=== PATIENT | male | born 1980 | race Two or more races ===

== ENCOUNTER 2020-10-01 20:33 | Emergency (ER) | payer BC, MEDICAID ==
[~2020-10-01] VITALS: Ht 180.3 cm; Wt 105.0 kg
[~2020-10-01 20:33] MED LIST: HYDR-4383 PO
[2020-10-01 20:39] VITALS: BP 237/132
== END 2020-10-01 22:01 | disposition home or self-care (01) ==
LOC: ER 20:35
DX: M54.2 Cervicalgia (principal); M79.644 Pain in right finger(s); V87.7XXA Person injured in collision between other specified motor vehicles (traffic), initial encounter; Y93.89 Activity, other specified; Y92.89 Other specified places as the place of occurrence of the external cause; Y99.8 Other external cause status
CPT/HCPCS: 73130; 99283